=== PATIENT | female | born 1925 | race Caucasian/White ===

== ENCOUNTER → 2016-10-25 | Outpatient (CLI) | payer MEDICARE, BC ==
[~2016-10-25] MED LIST: ALEN70TA3 PO; ASPI-515 PO; ASPI-650 PO; CALC-141 PO; CARV3.1212 PO; CHOL100011 PO; DEXL60CA PO; FAMO20TA37 PO; LEVO25TA4 PO; MULT-658 PO; PREVASTATIN; VITA1TAB63 PO
== END | disposition home or self-care (01) ==
LOC: CFH 10:37
PROVIDERS: ATTEND Internal Medicine Cardiovascular Disease
DX: I08.1 Rheumatic disorders of both mitral and tricuspid valves (principal); Z95.2 Presence of prosthetic heart valve; Z98.61 Coronary angioplasty status
CPT/HCPCS: 93306